=== PATIENT | female | born 1995 ===

== ENCOUNTER 2018-08-06 08:16 | Inpatient (IN) | payer OTHER ==
[~2018-08-06] VITALS: Ht 152.4 cm; Wt 59.4 kg
[2018-08-06] MEDS ORDERED: PRENATAL TABLE1 EAC1 PO (09:30)
== END 2018-08-08 13:28 | disposition home or self-care (01) | DRG 807 ==
LOC: LDR 08:16 → OB/GYN 08:16
PROVIDERS: ADMIT Obstetrics & Gynecology
PROC: 10E0XZZ Delivery of Products of Conception, External Approach (ICD-10-PCS; principal; 2018-08-06)
PROC: 3E033VJ Introduction of Other Hormone into Peripheral Vein, Percutaneous Approach (ICD-10-PCS; 2018-08-06)
PROC: 4A1HXCZ Monitoring of Products of Conception, Cardiac Rate, External Approach (ICD-10-PCS; 2018-08-06)
DX: O80 Encounter for full-term uncomplicated delivery (principal); Z37.0 Single live birth; Z3A.39 39 weeks gestation of pregnancy